=== PATIENT | male | born 1970 | race Caucasian/White ===

== ENCOUNTER → 2017-04-23 | Emergency (ER) | payer SELFPAY | LOC: BURERS 21:16 | DX: Z53.21 Procedure and treatment not carried out due to patient leaving prior to being seen by health care provider (principal) ==

== ENCOUNTER 2017-04-25 22:07 | Emergency (ER) | payer SELFPAY ==
--- NOTE | 2017-04-25 23:54 | RAD ---
LEFT SHOULDER THREE VIEWS: Date: 04-25-17 FINDINGS: No acute fracture or dislocation was seen. The AC joint is not widened and the scapula appears intac t. Some mild degenerative changes are seen in the AC joint. Some mild irregularity of the greater tu bercle of the proximal humerus appears chronic. IMPRESSION: No acute traumatic finding. POS: HOME
== END 2017-04-25 22:45 | disposition home or self-care (01) ==
LOC: BURERS 22:07
DX: S40.012A Contusion of left shoulder, initial encounter (principal); E78.5 Hyperlipidemia, unspecified; V19.9XXA Pedal cyclist (driver) (passenger) injured in unspecified traffic accident, initial encounter

== ENCOUNTER 2020-08-21 22:33 | Emergency (ER) | payer SELFPAY | END 2020-08-21 22:49 | LOC: BURERS 22:33 | DX: F10.129 Alcohol abuse with intoxication, unspecified (principal); E78.5 Hyperlipidemia, unspecified | CPT/HCPCS: 99283 ==

== ENCOUNTER 2021-03-10 11:17 | Emergency (ER) | payer OTHER, SELFPAY ==
[2021-03-10 11:49] LABS: #Basophils 0.1 thou/uL (0.0-0.2); #Eosinphils 0.2 thou/uL (0.0-0.7); #Lymphocytes 1.3 thou/uL (1.20-3.40); #Monocytes 0.5 thou/uL (0.11-0.59); #Neutrophils 6.6 thou/uL (1.40-6.50); %Basophils 0.7 % (0.0-1.0); %Eosinophils 1.9 % (0.0-10.0); %Lymphocytes 14.7 % (21.0-51.0); %Monocytes 5.7 % (0.0-10.0); Hemoglobin 14.3 g/dL (14.0-18.0); Mean Corpuscular HGB CONC 32.8 g/dL (32.0-36.0); Mean Corpuscular Hemoglobin 28.8 pg (27.0-31.0); Mean Corpuscular Volume 87.9 fL (78.0-98.0); Mean Platelet Volume 6.4 fL (7.4-10.4); Platelet Count 340 thou/uL (130-400); RBC Distribution Width 12.4 % (11.5-14.5); Red Blood Cell (RBC) Count 4.95 mill/uL (4.70-6.10); White Blood Cell (WBC) Count 8.6 thou/uL (4.8-10.8)
[2021-03-10 12:05] LABS: ALT (SGPT) 22 U/L (8-55); AST (SGOT) 25 U/L (5-34); Albumin 3.8 g/dL (3.5-5.0); Alkaline Phosphatase 80 U/L (40-110); Anion Gap 11 mmol/L (10-20); BUN (Urea Nitrogen) 14 mg/dL (8.9-20.6); Bilirubin, Total 0.5 mg/dL (0.2-1.2); Calc. Creatinine Clearance 0 mL/min (70-130); Calcium 9.1 mg/dL (7.8-10.44); Carbon Dioxide 29 mmol/L (22-29); Chloride 102 mmol/L (98-107); Globulin 2.9 g/dL (2.4-3.5); Glucose 96 mg/dL (70-105); Potassium 4.3 mmol/L (3.5-5.1); Protein, Total 6.7 g/dL (6.0-8.3); Sodium 138 mmol/L (136-145)
[2021-03-10] MEDS ORDERED: Boostrix 0.5 ML (Tdap) VIAL ONE (12:56)
[2021-03-10] MEDS ORDERED: Ketorolac Tromethamine 30 MG/ML VIAL ONE ×2 (12:56→13:00)
[2021-03-10] MEDS ORDERED: Bacitracin 1 PK ONE (12:56)
== END 2021-03-10 13:27 | disposition home or self-care (01) ==
LOC: BURERS 11:17
DX: S83.91XA Sprain of unspecified site of right knee, initial encounter (principal); S00.83XA Contusion of other part of head, initial encounter; S00.12XA Contusion of left eyelid and periocular area, initial encounter; S80.02XA Contusion of left knee, initial encounter; K02.9 Dental caries, unspecified; Z23 Encounter for immunization; I10 Essential (primary) hypertension; Y04.0XXA Assault by unarmed brawl or fight, initial encounter
CPT/HCPCS: 36415; 70450; 70486; 71045; 72125; 80053; 85025; 90471; 90715; 96372; J1885